=== PATIENT | male | born 1935 | race African-American/Black ===

== ENCOUNTER → 2016-04-04 | Outpatient (CLI) | payer OTHER ==
[~2016-04-04] MED LIST: ACETAMINOPHEN325 M1 PO; ALBUTEROL2.5 MG/0.1 INH; ALLOPURINOL 10100 M1 PO; ALLOPURINOL 30300 M1 PO; ANDROGEL75 GM TOP; B12INJ PO; BENADRYL25 MG PO; CARVEDILOL12.5 MG PO; CARVEDILOL6.25 MG PO; CO Q-10200 MG PO; COD LIVER OIL1 EAC4 PO; DHEA50 MG PO; DYRENIUM100 MG PO; FENOFIBRATE145 M1 PO; FUROSEMIDE 80 M80 M1 PO; HYDROCERIN CREA1 JAR TOP; K-DUR 20 MEQ T20 MEQ PO; LEVOTHYROXIN0.125 M1 PO; LOSARTAN-HCTZ1 EAC1 PO; METOLAZONE 5 MG5 MG PO; MOBIC15 MG PO; NORCO 5-325 TA1 EACH PO; OCUVITE TABLET1 EAC1 PO; OMEGA-31000 MG PO; PERCOCET 5-3251 EACH PO; PREDNISONE50 MG PO; REQUIP 0.25 M0.25 M1 PO; SPIRONOLACTONE25 M1 PO; SSD CREAM 1% 5050 GM TOP; SUPER CALCIUM1 EAC1 PO; SYMBICORT160 MCG/4. INH; TORSEMIDE20 MG PO; TRIAMTERENE-HC1 EAC3 PO; TRICOR48 MG PO; VICODIN 5-5001 EACH PO; VITAMIN C + RO500 MG PO; VITAMIN E400 UNIT PO; [UNRECOGNIZED DRUG - OTHER] MC
== END ==
LOC: HYPER 07:19
DX: I87.332 Chronic venous hypertension (idiopathic) with ulcer and inflammation of left lower extremity (principal); L97.821 Non-pressure chronic ulcer of other part of left lower leg limited to breakdown of skin; N18.9 Chronic kidney disease, unspecified; I50.20 Unspecified systolic (congestive) heart failure; E66.01 Morbid (severe) obesity due to excess calories

== ENCOUNTER → 2016-06-02 | Outpatient (CLI) | payer OTHER | LOC: HYPER 05-06 15:41 | DX: I87.332 Chronic venous hypertension (idiopathic) with ulcer and inflammation of left lower extremity (principal); L97.821 Non-pressure chronic ulcer of other part of left lower leg limited to breakdown of skin; L97.511 Non-pressure chronic ulcer of other part of right foot limited to breakdown of skin; E66.01 Morbid (severe) obesity due to excess calories; I50.20 Unspecified systolic (congestive) heart failure ==

== ENCOUNTER → 2016-07-14 | Outpatient (CLI) | payer OTHER | LOC: HYPER 07:13 | DX: I87.333 Chronic venous hypertension (idiopathic) with ulcer and inflammation of bilateral lower extremity (principal); L97.821 Non-pressure chronic ulcer of other part of left lower leg limited to breakdown of skin; L97.811 Non-pressure chronic ulcer of other part of right lower leg limited to breakdown of skin; R60.9 Edema, unspecified; E66.01 Morbid (severe) obesity due to excess calories; I13.0 Hypertensive heart and chronic kidney disease with heart failure and stage 1 through stage 4 chronic kidney disease, or unspecified chronic kidney disease; N18.9 Chronic kidney disease, unspecified; I50.9 Heart failure, unspecified; Z68.42 Body mass index [BMI] 45.0-49.9, adult ==

== ENCOUNTER 2016-08-04 12:51 | Emergency (ER) | payer OTHER ==
[~2016-08-04] VITALS: Ht 182.9 cm; Wt 154.2 kg
[2016-08-04] MEDS ORDERED: VALIUM2 MG PO (14:13)
== END 2016-08-04 14:34 | disposition home or self-care (01) ==
LOC: ER 12:51
DX: S16.1XXA Strain of muscle, fascia and tendon at neck level, initial encounter (principal); S09.90XA Unspecified injury of head, initial encounter; E66.01 Morbid (severe) obesity due to excess calories; E78.5 Hyperlipidemia, unspecified; I11.0 Hypertensive heart disease with heart failure; I50.9 Heart failure, unspecified; M10.9 Gout, unspecified; I25.10 Atherosclerotic heart disease of native coronary artery without angina pectoris; G47.30 Sleep apnea, unspecified; K21.9 Gastro-esophageal reflux disease without esophagitis; M19.90 Unspecified osteoarthritis, unspecified site; R60.0 Localized edema; Z68.42 Body mass index [BMI] 45.0-49.9, adult; W01.0XXA Fall on same level from slipping, tripping and stumbling without subsequent striking against object, initial encounter; Y93.89 Activity, other specified; Y92.89 Other specified places as the place of occurrence of the external cause; Y99.8 Other external cause status

== ENCOUNTER → 2016-08-22 | Outpatient (CLI) | payer OTHER ==
[~2016-08-22] MED LIST changes: +VALIUM2 MG PO
== END ==
LOC: HYPER 07:11
DX: I87.333 Chronic venous hypertension (idiopathic) with ulcer and inflammation of bilateral lower extremity (principal); L97.821 Non-pressure chronic ulcer of other part of left lower leg limited to breakdown of skin; L97.511 Non-pressure chronic ulcer of other part of right foot limited to breakdown of skin; E66.01 Morbid (severe) obesity due to excess calories; N18.9 Chronic kidney disease, unspecified; I50.9 Heart failure, unspecified; Z68.42 Body mass index [BMI] 45.0-49.9, adult

== ENCOUNTER → 2016-09-09 | Outpatient (CLI) | payer OTHER | LOC: HYPER 08-11 07:26 | DX: I87.333 Chronic venous hypertension (idiopathic) with ulcer and inflammation of bilateral lower extremity (principal); L97.821 Non-pressure chronic ulcer of other part of left lower leg limited to breakdown of skin; L97.811 Non-pressure chronic ulcer of other part of right lower leg limited to breakdown of skin; R60.9 Edema, unspecified; E66.01 Morbid (severe) obesity due to excess calories; I50.9 Heart failure, unspecified ==

== ENCOUNTER → 2016-09-09 | Outpatient (CLI) | payer OTHER ==
--- NOTE | ~2016-09-09 | EKG ---
[place] [address] [facility] [address] [place] [address] ELECTROCARDIOGRAM REPORT Name: ANGELIKATEDDY Room #: REG CESAREdward Diallo#: [id number] Admission: 09/09/16 Attend Phys: Deisy Riley MD Discharge: Date of : 31 Report #: [id number] THIS REPORT FOR: //name// [facility] Test Date: 2016-09-09 Test Time: 11:31:17 Pat Name: TEDDY CARNEY Department: Room: Gender: Customs Verifier: Arlette BRITO : 1935 Requested By: Deisy Riley Order Number: [id number] MD: Alden Malik Measurements Intervals [place] Rate: 87 P: 51 [place]: 215 QRS: -35 QRSD: 105 T: 73 QT: 409 QTc: 492 Interpretive Statements Sinus rhythm Borderline prolonged [place] interval Left axis deviation Low voltage, extremity and precordial leads Probable anteroseptal infarct, old Nonspecific T abnormalities, lateral leads Electronically Signed On 09-10-2016 16:09:45 CDT by Alden Malik [email or web address] <ELECTRONICALLY SIGNED> By: Alden Malik MD 09/10/16 1609 113 30 Alden Malik MD /CAITLYN
== END ==
LOC: RAD 10:42
DX: I50.9 Heart failure, unspecified (principal); I51.7 Cardiomegaly; J90 Pleural effusion, not elsewhere classified